=== PATIENT | female | born 1965 | race Caucasian/White ===

== ENCOUNTER → 2023-09-14 18:56 | Outpatient (REF) | payer BC, SELFPAY | LOC: WDC 18:56 | PROVIDERS: ATTENDING PHYSICIAN Obstetrics & Gynecology Gynecology; FAMILY PHYSICIAN Family Medicine | DX: Z12.31 Encounter for screening mammogram for malignant neoplasm of breast (principal); Z80.3 Family history of malignant neoplasm of breast | CPT/HCPCS: 77063; 77067 ==

== ENCOUNTER 2023-12-25 13:21 | Inpatient (IN) | payer BC, SELFPAY ==
[2023-12-25] VITALS (18 sets, daily range): BP systolic 135–215; BP diastolic 74–173; BMI 25.0
--- NOTE | 2023-12-25 11:08 | EDRN ---
the pt was placed on the caustic pump operator, blood pressure taken again and is 215/112 (135), the pt is tearful and worried, the pt stated to this RN that her vision is blurry and stated, 'I am so worried that i have some kind of tumor in my head',
this RN reassured the pt and talked the pt through deep breathing, PIV placed, labs drawn and sent, Dr. Caruso currently at the pts bedside, NIH performed, will continue to monitor the pt closely
--- NOTE | 2023-12-25 11:13 | EDRN ---
EKG being performed
--- NOTE | 2023-12-25 11:15 | ED.GENMED ---
History of Present Illness
General
Chief Complaint: Blood Pressure Problem
Source: patient
Exam Limitations: none
Time Seen by Provider: 12/25/23 11:05
Nursing documentation reviewed up to this point in time: agreed with
History of Present Illness
History of Present Illness:
Patient with history of hypertension on lisinopril and HCTZ, presents to ED secondary to persistently elevated blood pressure over the past 1 month, along with ongoing blurred vision, left worse than right. Patient has been evaluated by an
baby formula mixer who discovered 'blood vessel hemorrhage' behind the left eye. Patient also has had left-sided headache for some time. Denies loss of sensation or weakness. Denies difficulty with speech or swallowing. Denies difficulty with
ambulation. Denies chest pain or palpitations. Denies recent change in diet. Denies recent weight changes.
Past History
Past History
ED Past Medical History: HTN and Other (Gestational diabetes, sleep apnea)
ED Past Surgical History: and Other (Hammertoe surgery, pilonidal cyst surgery, wisdom teeth extraction)
Social History
Tobacco: Smoker
Alcohol: Occasional
Personal:
Living: with family
Employment: Employed
Review of Systems
Review of Systems
Allergies reviewed?: Yes
All Other Systems: ROS reviewed and negative except as documented in HPI and ROS
Constitutional: Reports no symptoms
EENT: Reports no symptoms
Respiratory: Reports no symptoms
Cardiac: Reports no symptoms; Denies chest pain or palpitations
ABD/GI: Reports no symptoms
Musculoskeletal: Reports no symptoms
Skin: Reports no symptoms
Neurological: Reports headache and other (Blurry visionblurred vision)
Phy Exam
Physical Exam
Physical Exam:
Physical Exam
General: no apparent distress, not acutely ill. afebrile. hypertensive
Head: nc/at. eomi.
Neck: supple. normal range of motion
Heart: s1/s2 regular rate and rhythm, no murmur. equal radial pulses.
Lungs: no acute respiratory distress. clear bilaterally
Abdomen: normal bowel sounds. not tender.
Neuro: alert and oriented. no focal neurological deficits
Skin: no rash
Psychiatric: well kept. interactive and cooperative
Extremities: no edema. no calf tenderness.
Course
Orders/Labs/Results
Orders:
Orders
12/25/23 Breakfast
Cholesterol Lowering
At Your Request: Full Participation
Does patient need a safe tray?: No
Cholesterol Lowering: Sodium, 2 Gram
12/25/23 10:58
EKG [Electrocardiogram (*1)] Urgent
Reason for Study: Vertigo / Dizzy
EKG- Treatment ONCE
12/25/23 11:05
Complete Blood Count/With Diff Urgent
Comprehensive Metabolic Panel Urgent
12/25/23 11:13
CT Head W/o Iv Contrast Urgent
Comment:
Reason For Exam: severe hypertension with blurred vision
TSH Urgent
Troponin I Urgent
12/25/23 11:14
Labetalol HCl [Trandate] 10 mg IV NOW STA
12/25/23 13:11
Metoprolol Xl [Toprol Xl] 25 mg PO NOW STA
12/25/23 13:12
Admit/Transfer Patient As Directed
Co-Sign Provider:
Level of Care: Inpatient admission
Assign to:: Telemetry
Physician / Group: andrea
Diagnosis: hypertension emergency
Reason for Telemetry: Other
Other Reason for Telemetry: htn emergency
Date to Stop Telemetry: 12/27/23
Time to Stop Telemetry: 11:00
Reason for Hospitalization: HTn emergency
Expected length of stay greater than two midnights?: Yes
ELOS- Estimated Length of Stay in days: 3
I certify the patient meets the requirements for IP care: Yes
PRN Pain Medication Management As Directed
May give lesser potent ordered pain med per pt: Yes
preference::
Protocol:: Medication orders for pain may be administered in a
manner that supports deferring to patient preference
when the pt is:
- Requesting an ordered lesser potent pain medication.
Least to most potent pain medications are defined
as: acetaminophen < NSAID < tramadol < opioids
(morphine, oxycodone, hydromorphone).
- Requesting a lesser dose of the same medication IF
ORDERED.
- Requesting a less intrusive route of administration
if both routes are prescribed by the provider (PO <
IV).
12/25/23 13:13
Code Status As Directed
Resuscitation Status: Full Code
12/25/23 15:43
Acetaminophen [Tylenol] 650 mg PO Q4HPRN PRN
Bisacodyl [Dulcolax] 10 mg RECTAL [id number] PRN
Docusate W/Senna [Senokot-S] 1 tablet PO BIDPRN PRN
Polyethylene Glycol Powder [Miralax] 17 grams PO DAILYPRN PRN
12/25/23 15:43
Activity As Directed
Activity Level: As Tolerated
Pneumatic Compression Sleeves As Directed
Type: Knee high
Vital Signs As Directed
Frequency: Per unit guidelines
DX Deep Vein Thrombosis Video Routine
12/25/23 23:02
Urinalysis Reflex To Culture Urgent
Date Specimen was Collected: 12/25/23
Time Specimen was Collected: 11:19
12/26/23 06:04
Basic Metabolic Panel IN AM
Cardiovascular Evaluation IN AM
Complete Blood Count/No Diff IN AM
12/26/23 08:00
Duloxetine Delayed Release [Cymbalta Delayed Release] 60 mg PO DAILY
Hydrochlorothiazide [Oretic] 12.5 mg PO DAILY
Lisinopril [Zestril] 20 mg PO DAILY
Metoprolol Xl [Toprol Xl] 25 mg PO DAILY
12/26/23 18:19
Urine Microscopic Reflex Cult Urgent
Urine Culture Urgent
AGUSTIN Source: U
Specimen Description:
Date Specimen was Collected: 12/25/23
Time Specimen was Collected: 11:19
12/27/23 09:24
Basic Metabolic Panel IN AM
Complete Blood Count/No Diff IN AM
12/27/23 11:00
DC Protocol for Telemetry ONCE
Abnormal Lab Results
12/25/23
11:05
MCH 31.3 H pg
(27.0-31.0)
Absolute Monos (auto) 0.8 H 10^3/uL
(0.1-0.6)
Monocytes % 16.4 H %
(1.7-9.3)
12/25/23 11:05
12/25/23 11:05
Vital Signs
Initial and Last Documented VS:
Initial Vital Signs
Temp Pulse Resp BP Pulse Ox
98.2 F 87 16 183/113 98
12/25/23 10:51 12/25/23 10:51 12/25/23 10:51 12/25/23 10:51 12/25/23 10:51
Last Documented Vital Signs
Temp Pulse Resp BP Pulse Ox
98.1 F 82 14 124/76 98
12/27/23 16:05 12/27/23 16:05 12/27/23 16:05 12/27/23 16:05 12/27/23 16:05
MDM/Problems Addressed
MDM/Problems Addressed:
CT head: NAD.
Discussed with on-call neurology, Dr. Ramey. Recommends that patient be admitted for further evaluation and treatment, including tighter blood pressure control.
*EKG
EKG Intrepretation Date: 12/25/23
Heart Rate: 73
Rate: normal
Rhythm: sinus
[place]: normal axis
Interval: normal interval
*Critical Care Note
Total Time (30-74mins, 75-104mins- exclusive of procedures): Not Applicable
ED Attending Note
-
Portions of this chart may have been created with voice recognition software.� Occasional wrong word or��sound alike� substitutions may have occurred due to the inherent limitations of voice recognition software.
Discharge Plan
Departure
Patient Disposition: Admit
Date of Disposition: 12/25/23
Time of Disposition: 12:42
Admit to: Telemetry
Presentation/result/management discussed w/ accepting MD/DO: Hospitalist
Discharge Problem:
Hypertensive emergency, Blurred vision
Interventions
Interventions:
*Risk Screen - Suicide Last Done: 12/25/23 11:09
*General Assessment Last Done: 12/25/23 11:09
*Neglect/Abuse Screening Last Done: 12/25/23 11:09
ED- Fall Risk Assessment Last Done: 12/25/23 11:09
*ED COVID-19 Vaccine History Last Done: 12/25/23 11:09
*Nursing Disposition Last Done: 12/25/23 14:53
ED- Cardiac Assessment Last Done: 12/25/23 11:09
ED- Neurological Assessment Last Done: 12/25/23 11:09
ED- Pulmonary Assessment Last Done: 12/25/23 11:09
Discharge Date and Time
Discharge Date/Time: 12/25/23 15:36
[2023-12-25 11:22] LABS: % Basophils 0.8 % (0-2); % Eosinophils 1.6 % (0-6); % Immature Granulocytes 0.2 % (0-0.5); % Lymphocytes 32.1 % (20.5-51.1); % Monocytes 16.4 % (1.7-9.3); % Neutrophils 48.9 % (42.2-75.2); Absolute Eosinophils 0.1 10^3/uL (0-0.7); Absolute Lymphocytes 1.6 10^3/uL (1.2-3.4); Absolute Monocytes 0.8 10^3/uL (0.1-0.6); Absolute Neutrophils 2.5 10^3/uL (1.4-6.5); Hematocrit 39.6 % (37.0-47.0); Hemoglobin 14.1 g/dL (12.0-16.0); Mean Corp Hgb Conc. 35.6 g/dL (33.0-37.0); Mean Corpuscular Hgb 31.3 pg (27.0-31.0); Mean Corpuscular Volume 87.8 fL (81.0-99.0); Mean Platelet Volume 9.4 fL (7.4-10.4); Nucleated Red Blood Cells % 0 %; Platelet Count 289 10^3/uL (130-400); Red Blood Cell Count 4.51 10^6/uL (4.20-5.40); Red Cell Dist. Width 12.3 % (11.5-14.5); White Blood Cell Count 5.1 10^3/uL (4.8-10.8)
[2023-12-25 11:33] LABS: ALT (SGPT) 16 U/L (0-35); AST (SGOT) 30 U/L (14-36); Albumin 4.8 g/dl (3.5-5.0); Alkaline Phosphatase 66 U/L (38-126); Blood Urea Nitrogen 11 mg/dl (7-17); Carbon Dioxide 27 mmol/L (22-30); Chloride 98 mmol/L (98-107); Estimated Creatinine Clearance 84 ml/min; Glucose 82 mg/dl (70-99); Potassium 4.5 mmol/L (3.5-5.1); Sodium 135 mmol/L (135-145); Total Bilirubin 0.6 mg/dl (0.2-1.3); Total Protein 7.1 g/dl (6.3-8.2); eGFR > 60.00
--- NOTE | 2023-12-25 11:43 | EDRN ---
per Dr. Caruso the pt is not to receive Labetalol until the pt goes to CT scan and after the pts blood pressure is checked after CT scan
[2023-12-25 11:46] LABS: Troponin I < 0.012 ng/ml
[2023-12-25 12:06] LABS: TSH 1.86 uIU/ml (0.47-4.68)
--- NOTE | 2023-12-25 12:09 | EDRN ---
blood pressure rechecked and is currently 186/97 (124), provider notified and per Dr. Caruso hang on to Labetalol and do not give it yet, continue to monitor BP, will continue to monitor the pt closely
[2023-12-25] MEDS: TRANDATE 10 MG IV (12:38)
--- NOTE | 2023-12-25 12:45 | HPS.HSE ---
Addendum entered and electronically signed by Lucia Leo MD 12/25/23 14:39:
see my update note for addendum
Original Note:
Family Physician
-
Family Physician: Alejandra Chung
Chief Complaint
-
headache
blurry vision
History of Present Illness
58 year old with PMH for HTN, NU presented to us with elevated BP for one month. she was asked by PCP to monitor for one month. she had an appointment with e business consultant last Thursday due to blurry vision and noted to have blood vessel
hemorrhage. for past few days her BP was noted in 180's over 100's. she was evaluated by PCP today. her BP was 190 /120. PCP recommended ER visit. patient stated left blurry vision worse than right. denied dizzy or syncopal episode. Headache is also
more left side. Denies loss of sensation or weakness. Denies difficulty with speech or swallowing. Denies difficulty with ambulation. Denies chest pain or palpitations. denied abdominal pain,n,v,d. denied dysuria or hematuria.
Head CT with no acute findings. admitting for further management. patient received IV labetalol in ER. admitting for further management.
Medical History
Past Medical History
Past Medical History: Reports Other
Additional Past Medical History:
sleep apnea
htn
colon polyp
anxiety
depression
Past Surgical History: Reports Other
Additional Past Surgical History:
Anal fissure repair
hammertoe repair
carpal tunnel release
Social History
Tobacco: Smoker
Alcohol: Occasional
Drug: None
Personal:
Living: With Family
Employment: Employed
Family History
Family History: Not pertinent
Allergies / Home Medications
Allergies reflects when Allergies were last updated in [facility].
Home Medications with original date entered in [facility]
Allergy/Medication List:
Allergies
Allergy/AdvReac Type Severity Reaction Status Date / Time
amoxicillin [From Augmentin] Allergy Hives Verified 12/25/23 10:57
cefaclor [From Ceclor] Allergy Hives Verified 12/25/23 10:57
clavulanic acid Allergy Hives Verified 12/25/23 10:57
[From Augmentin]
codeine [Codeine] Allergy Hives Verified 12/25/23 10:57
bees/yellow jackets Allergy Anaphylaxis Uncoded 12/25/23 10:57
Home Medications
duloxetine 60 mg capsule,delayed release (Cymbalta) 60 mg PO DAILY 09/21/09
Lisinopril 10 mg PO DAILY 01/12/16
diphenhydramine HCl 50 mg capsule 50 mg PO Q6H PRN itching #30 caps 06/26/22
Review of Systems
-
Constitutional: Reports No Symptoms
EENT: Reports Other (blurry vision)
Respiratory: Reports No Symptoms
Cardiac: Reports No Symptoms
Abdomen/GI: Reports No Symptoms
: Reports No Symptoms
Musculoskeletal: Reports No Symptoms
Skin: Reports No Symptoms
Neurological: Reports Headache
Endocrine: Reports No Symptoms
Hematologic/Lymphatic: Reports No Symptoms
Psych: Reports No Symptoms
Physical Exam
Vital Signs
Vital Signs
Temp Pulse Resp BP Pulse Ox
98.2 F 75 16 178/143 95
12/25/23 10:51 12/25/23 12:38 12/25/23 12:30 12/25/23 12:38 12/25/23 12:30
Physical Exam
General: Well Developed, Well Nourished and No Apparent Distress
HEENT: NormoCephalic, Moist mucous membranes and Atraumatic
Respiratory: Clear
Cardiac: S1/S2 and Regular Rhythm; No Murmur or Rub
GI: Soft, Non Tender, Non Distended and Normal Bowel Sounds; No Organomegaly
Rectal: Deferred by Provider
Musculoskeletal: No Clubbing, No Cyanosis and No Edema
Skin: No Rash
Neuro: AO x 3 and Nonfocal/grossly intact
Psych: Calm
Laboratory Results
-
12/25/23 11:05
12/25/23 11:05
Laboratory Results
Total Bilirubin 0.6 mg/dl (0.2-1.3) 12/25/23 11:05
AST 30 U/L (14-36) 12/25/23 11:05
ALT 16 U/L (0-35) 12/25/23 11:05
Alkaline Phosphatase 66 U/L (38-126) 12/25/23 11:05
Troponin I < 0.012 ng/ml 12/25/23 11:13
Data Reviewed
-
CT Scan: Report Reviewed by me
Lab Data: Labs Reviewed by me
Impression/Plan
-
#TAPIA/blurred vision likely from hypertension emergency
-SBP>210, trending down
-CT head No acute intracranial hemorrhage.Nonspecific mild to moderate white matter disease, likely related to microvascular ischemia, though greater than expected for patient age.
-EKG NSR
-Received labetalol in ER
-Lisinopril and hctz continued continued
-metoprolol added
-continue to monitor BP
#anxiety
-duloxetine continued
#DVT prophylaxis
-scd
#CODE status
-full code
[2023-12-25] MEDS: TOPROL XL 25 MG PO (13:59)
--- NOTE | 2023-12-25 14:39 | W.PN.UPDATE ---
Update Note
Progress Note Update
I saw and examined the patient.
The FUNERAL ARRANGEMENT DIRECTOR Paulie's note was reviewed and I agree with the note.
Comment: 58 y/o F hx of HTN (on 2 BP meds) NU presents to ER for elevated BP. Recent had blurry vision and blood vessel hemorrhage in the eye diagnosed by log sawyer. Home readings showing 180s/100s. PCP recommended ER visit. Today reports
ongoing blurred vision and headache. No other complaints.
In ER, given Labetalol and started back on PO meds.
Physical Exam
General: Well Developed, Well Nourished and No Apparent Distress
HEENT: Normocephalic, Moist mucous membranes and Atraumatic
Respiratory: Clear
Cardiac: S1/S2 and Regular Rhythm; No Murmur or Rub
GI: Soft, Non Tender, Non Distended and Normal Bowel Sounds; No Organomegaly
Rectal: Deferred by Provider
Musculoskeletal: No Clubbing, No Cyanosis and No Edema
Skin: No Rash
Neuro: AO x 3 and Nonfocal/grossly intact
Psych: Calm
Assessment:
Hypertensive urgency with TAPIA, blurred vision
- CT head negative in ER
- s/p Labetalol in ER
- continue Lisinopril 20mg
- continue HCTZ 12.5mg
- add Metoprolol; monitor response
Anxiety - continue Duloxetine
DVT ppx: SCDs
Code: Full
--- NOTE | 2023-12-25 14:45 | EDRN ---
admission information documented by this RN in [facility], this RN sent paper report up to the receiving nurse
[2023-12-26] VITALS (10 sets, daily range): BP systolic 100–170; BP diastolic 67–102
--- NOTE | 2023-12-26 03:47 | PTCARENOTE ---
Pt rang call williamson and requested CPAP to be taken off for the rest of the night. CPAP removed, pt reported that she 'slept pretty good last night' with the CPAP on. RT Telma made aware that pt will keep CPAP off for the rest of the shift.
[2023-12-26 06:48] LABS: Blood Urea Nitrogen 12 mg/dl (7-17); Calcium 9.9 mg/dl (8.4-10.2); Carbon Dioxide 31 mmol/L (22-30); Chloride 98 mmol/L (98-107); Estimated Creatinine Clearance 74 ml/min; Glucose 107 mg/dl (70-99); HDL Cholesterol 56 mg/dl; LDL Cholesterol, Calculated 118 mg/dl; Potassium 4.8 mmol/L (3.5-5.1); Sodium 137 mmol/L (135-145); Total Cholesterol 193 mg/dl (50-199); Triglyceride 95 mg/dl (10-149); Very Low Density Lipoprotein 19 mg/dl (0-30); eGFR > 60.00
[2023-12-26 07:57] LABS: Hematocrit 38.4 % (37.0-47.0); Hemoglobin 13.4 g/dL (12.0-16.0); Mean Corp Hgb Conc. 34.9 g/dL (33.0-37.0); Mean Corpuscular Hgb 31.9 pg (27.0-31.0); Mean Corpuscular Volume 91.4 fL (81.0-99.0); Mean Platelet Volume 9.6 fL (7.4-10.4); Platelet Count 206 10^3/uL (130-400); Red Cell Dist. Width 12.1 % (11.5-14.5); White Blood Cell Count 5.4 10^3/uL (4.8-10.8)
[2023-12-26] MEDS: TOPROL XL 25 MG PO (08:22)
[2023-12-26] MEDS: TYLENOL 650 MG PO (08:22)
[2023-12-26] MEDS: CYMBALTA DELAYED RELEASE 60 MG PO (08:22)
[2023-12-26] MEDS: ORETIC 12.5 MG PO (08:22)
[2023-12-26] MEDS: ZESTRIL 20 MG PO ×2 (08:23→13:26)
--- NOTE | 2023-12-26 10:08 | W.PN.HOSP.TC ---
Today's Communication/Plan
-
dc if afternoon BP stable
Assessment / Plan
Assessment / Plan
Assessment:
Hypertensive urgency with TAPIA, blurred vision
- CT head negative in ER
- s/p Labetalol in ER
- continue Lisinopril 20mg/HCTZ 12.5mg
- continue newly added Metoprolol XL and monitor response. If BP stable, dc later today
Anxiety - continue Duloxetine
DVT ppx: SCDs
Code: Full
More than 30 minutes spent in discharge including
Final examination of the patient
Summarizing hospital stay
Instructions for continuing care to all relevant caregivers
Preparation of discharge records, prescriptions, and referral forms
Total time spent (in minutes): 41
Anticipated Discharge: Today
Subjective/Interval History
-
Date of Service: December 26, 2023
headache improving
BP improving
Objective Data
-
Labs:
Laboratory Results
12/26/23
06:04
WBC 5.4
Hgb 13.4
Hct 38.4
Plt Count 206 D
Sodium 137
Potassium 4.8
Chloride 98
Carbon Dioxide 31 H
BUN 12
Creatinine 0.8
Glucose 107 H
Calcium 9.9
Vital Signs:
Vital Signs
Temp Pulse Resp BP Pulse Ox
97.6 F 69 18 157/88 99
12/26/23 07:53 12/26/23 07:53 12/26/23 07:53 12/26/23 07:53 12/26/23 07:53
I&O
12/25/23 12/26/23 12/27/23
06:59 06:59 06:59
Intake Total 960 / 960
Balance 960 / 960
Physical Exam
-
General: No Apparent Distress
HEENT: Normocephalic and Atraumatic
Respiratory: Negative Wheezes
Cardiac: Regular Rhythm
GI: Soft
Musculoskeletal: No Edema
Neuro: AO x 3
Hematologic / Lymphatic: No Lymphadenopathy
Psych: Calm
Data Reviewed
-
Total Time Spent with Patient (in minutes): 41
Labs: Labs Reviewed by me
--- NOTE | 2023-12-26 11:17 | CM ---
Patient seen bedside with spouse, Gary, initial assessment completed. Patient resides with spouse in a multiple story home, bedroom on main floor, two steps to enter. Patient denies DME, VN, or SNF history. Patient PCP Alejandra Chung, pharmacy [facility]. Patient confirms prescription coverage, denies food, housing/utility, transportation insecurities at home. CM will continue to follow for all discharge planning needs.
Plan; discharge, home no needs, with spouse.
[2023-12-26] MEDS: XANAX 0.125 MG PO (14:03)
--- NOTE | 2023-12-26 14:18 | W.CON.NEPH ---
Consultation
-
Date/Time Consultation Requested: 12/26/2023 13:20PM
Date/Time Consultation Performed: 12/26/2023 2:18PM
Requesting Provider: Lucia Leo
Performing Provider: Valentine Watters
Reason for Consultation: HTN
Medical History
-
Chief Complaint: HTN
History of Present Illness:
Ms. Mensah is a 58YOF with PMH of HTN, NU who presents to the hospital for elevated BP.
She was being monitored by her PCP for one month of HTN. Her blood pressures were running in the 180s-200s systolics. She had an appointment with web art director last Thursday due to blurry vision and noted to have blood vessel hemorrhage. Does
endorse headache on L side. H Denies loss of sensation or weakness. Denies difficulty with speech or swallowing. Denies difficulty with ambulation. Denies chest pain or palpitations. denied abdominal pain,n,v,d. denied dysuria or hematuria. Does
endorse significant life stressors at home. Has not been wearing CPAP. Drinking salt drinks due to hyponatremia with HCTZ. Does not follow low salt diet. Does not excercise.
Head CT with no acute findings.
Nephrology is consulted for HTN.
Past Medical History
sleep apnea
htn
colon polyp
anxiety
depression
Past Surgical History: Other (Anal fissure repair hammertoe repair carpal tunnel release)
Social History
Tobacco: Smoker
Alcohol: Occasional
Drug: None
Personal:
Living: With Family
Employment: Employed
Family History
brother with HTN in 20s
diagnosed with HTN in 30s
both parents with HTN
father with renal failure at 70, initiated HD, at 80
Family History: Not Pertinent
Allergies / Home Medications
Allergy/AdvReac Type Severity Reaction Status Date / Time
amoxicillin [From Augmentin] Allergy Hives Verified 12/25/23 10:57
cefaclor [From Ceclor] Allergy Hives Verified 12/25/23 10:57
clavulanic acid Allergy Hives Verified 12/25/23 10:57
[From Augmentin]
codeine [Codeine] Allergy Hives Verified 12/25/23 10:57
bees/yellow jackets Allergy Anaphylaxis Uncoded 12/25/23 10:57
�Medication �Instructions �Recorded �Confirmed �Type
duloxetine 60 mg capsule,delayed 60 mg PO DAILY Depression 09/21/09 12/25/23 History
release (Cymbalta)
lisinopril 20 mg tablet 20 mg PO DAILY Blood Pressure 01/12/16 12/25/23 History
hydrochlorothiazide 12.5 mg tablet 12.5 mg PO DAILY Blood Pressure 12/25/23 12/25/23 History
Review of Systems
-
History Source: Patient
All other systems: Negative unless noted
Physical Exam
Vital Signs
Vital Signs
Temp Pulse Resp BP Pulse Ox
98.4 F 66 20 162/100 99
12/26/23 11:18 12/26/23 11:18 12/26/23 11:18 12/26/23 13:00 12/26/23 11:18
Lab Results
WBC 5.4 10^3/uL (4.8-10.8) 12/26/23 06:04
RBC 4.20 10^6/uL (4.20-5.40) 12/26/23 06:04
Hgb 13.4 g/dL (12.0-16.0) 12/26/23 06:04
Hct 38.4 % (37.0-47.0) 12/26/23 06:04
Plt Count 206 10^3/uL (130-400) D 12/26/23 06:04
Sodium 137 mmol/L (135-145) 12/26/23 06:04
Potassium 4.8 mmol/L (3.5-5.1) 12/26/23 06:04
Chloride 98 mmol/L (98-107) 12/26/23 06:04
Carbon Dioxide 31 mmol/L (22-30) H 12/26/23 06:04
BUN 12 mg/dl (7-17) 12/26/23 06:04
Creatinine 0.8 mg/dL (0.6-1.0) 12/26/23 06:04
eGFR > 60.00 12/26/23 06:04
Glucose 107 mg/dl (70-99) H 12/26/23 06:04
Calcium 9.9 mg/dl (8.4-10.2) 12/26/23 06:04
Albumin 4.8 g/dl (3.5-5.0) 12/25/23 11:05
Physical Exam
General: AOx3, No Distress and Nontoxic
HEENT: PERRL, EOMI, Anicteric, Conjunctivae Clear, Ear/Nose Intact, Hearing Normal, Oropharynx Clear/Moist, Dentition Intact, Facial Symmetry, Neck Supple, Trachea Midline, No JVD and No Thyromegaly
Respiratory: Clear
Cardiac: S1/S2, Regular Rate/Rhythm and No Edema
Breast: Deferred by me
Abdomen: Soft, Nontender, Nondistended, Normal Bowel Sounds and No Hepatosplenomegaly
Rectal: Deferred by Provider
Genito-urinary: Clear Urine
Musculoskeletal: No Clubbing, No Cyanosis and No Edema
Skin: No Rash, Warm, Dry, No Clubbing, No Cyanosis, Normal Turgor and No Bruising
Neuro: Nonfocal/Grossly Intact
Hematologic/Lymphatic: No Cervical Lymphadenopathy
Psych: Mood/afflect pleasant, Insight/judgement good and Appropriate
Data Reviewed
-
CT Scan: Report Reviewed by me (IMPRESSION: No acute intracranial hemorrhage. Nonspecific mild to moderate white matter disease, likely related to microvascular ischemia, though greater than expected for patient age.)
Labs: Labs Reviewed by me and Discussed with Patient
Old Records: Reviewed
Assessment/Plan
-
Assessment:
HTN
NU
Plan:
Hypertension
- ddx: mineralocorticoid excess, NU, pheo, thyroid disorders, [place], SUSSY'
- obtain cortisol, TSH, renal duplex, plasma metanephrines, renin/yady
- current regimen: HCTZ and metoprolol and lisinopril 40mg
- I will change her regimen to lisinopril 40mg, nifedipine 60mg daily
- will hold HCTZ due to prior hyponatremia. can change to spironolactone after above testing is done. in the interim, will initiate lasix 20mg PO daily
- I stopped metoprolol, can transition to coreg if needed
- low salt diet
- discussed dietary and lifestyle changes
- continue CPAP nightly
- no smoking or alcohol usage
[2023-12-26] MEDS: LASIX 20 MG PO (16:43)
[2023-12-26 18:27] LABS: Urine Albumin Trace (Neg - Trace); Urine Bilirubin Negative (Negative); Urine Character Clear (Clear); Urine Color Yellow; Urine Glucose Negative (Negative); Urine Ketone Negative (Negative); Urine Leukocyte 2+ (Negative); Urine Nitrite Negative (Negative); Urine Occult Blood Trace (Negative); Urine Specific Gravity 1.015 (<1.030); Urine Urobilinogen Negative (Neg - 1+)
[2023-12-26 19:21] LABS: Urine Bacteria Few (Negative); Urine Red Blood Cell 0-2 /HPF (0-2)
[2023-12-26] MEDS: PROCARDIA XL (EXTENDED RELEASE) 60 MG PO (21:24)
--- NOTE | 2023-12-26 23:30 | RESPNOTE ---
Attempted to place this PT on CPAP as ordered for HS use for NU and PT stated that although the CPAP had helped the night before, she is currently nauseous and wants to wait until she is not feeling nauseous to use the CPAP.
[2023-12-27 03:00] VITALS: BP 117/71
[2023-12-27 07:44] VITALS: BP 117/71
[2023-12-27] MEDS: ZESTRIL 40 MG PO (09:22)
[2023-12-27] MEDS: PROCARDIA XL (EXTENDED RELEASE) 30 MG PO (09:22)
[2023-12-27] MEDS: CYMBALTA DELAYED RELEASE 60 MG PO (09:23)
[2023-12-27] MEDS: LASIX PO (09:24)
[2023-12-27] MEDS: TYLENOL 650 MG PO (09:35)
[2023-12-27] MEDS: PROCARDIA XL (EXTENDED RELEASE) PO (09:41)
[2023-12-27 09:57] LABS: Blood Urea Nitrogen 11 mg/dl (7-17); Carbon Dioxide 31 mmol/L (22-30); Chloride 92 mmol/L (98-107); Estimated Creatinine Clearance 65 ml/min; Glucose 179 mg/dl (70-99); Potassium 4.5 mmol/L (3.5-5.1); Sodium 135 mmol/L (135-145); eGFR > 60.00
--- NOTE | 2023-12-27 10:15 | W.PN.HOSP.TC ---
Today's Communication/Plan
-
follow afternoon BP is stable, dc home
Assessment / Plan
Assessment / Plan
Assessment:
Hypertensive urgency with TAPIA, blurred vision
- CT head negative in ER
- s/p Labetalol in ER
- continue Lisinopril 40mg, Nifedipine 30mg
- trialed metoprolol but BPs remained high
- appreciate Nephrology assistance
- secondary hypertension workup - including renal US (RX given for outpatient) - pending
Anxiety - continue Duloxetine
DVT ppx: SCDs
Code: Full
More than 30 minutes spent in discharge including
Final examination of the patient
Summarizing hospital stay
Instructions for continuing care to all relevant caregivers
Preparation of discharge records, prescriptions, and referral forms
Total time spent (in minutes): 41
Anticipated Discharge: Today
Subjective/Interval History
-
Date of Service: December 27, 2023
BP improved with med adjustments by nephrology, patient no complaints currently
Objective Data
-
Labs:
Laboratory Results
12/27/23
09:24
WBC Pending
Hgb Pending
Hct Pending
Plt Count Pending
Sodium 135
Potassium 4.5
Chloride 92 L
Carbon Dioxide 31 H
BUN 11
Creatinine 0.9
Glucose 179 H
Calcium 10.0
Vital Signs:
Vital Signs
Temp Pulse Resp BP Pulse Ox
98.3 F 71 12 117/71 98
12/27/23 07:44 12/27/23 09:22 12/27/23 07:44 12/27/23 09:22 12/27/23 07:44
I&O
12/26/23 12/27/23 12/28/23
06:59 06:59 06:59
Intake Total 960 / 960 720 / 720
Balance 960 / 960 720 / 720
Physical Exam
-
General: No Apparent Distress
HEENT: Normocephalic and Atraumatic
Respiratory: Negative Wheezes
Cardiac: Regular Rhythm and S1/S2
GI: Soft
Genito-urinary: No Costovertebral Tender
Neuro: AO x 3
Hematologic / Lymphatic: No Lymphadenopathy
Psych: Calm
Data Reviewed
-
Total Time Spent with Patient (in minutes): 41
Labs: Labs Reviewed by me
[2023-12-27 10:25] LABS: Hemoglobin 14.7 g/dL (12.0-16.0); Mean Corp Hgb Conc. 35.9 g/dL (33.0-37.0); Mean Corpuscular Hgb 31.7 pg (27.0-31.0); Mean Corpuscular Volume 88.6 fL (81.0-99.0); Mean Platelet Volume 9.9 fL (7.4-10.4); Platelet Count 300 10^3/uL (130-400); Red Blood Cell Count 4.63 10^6/uL (4.20-5.40); Red Cell Dist. Width 12.4 % (11.5-14.5); White Blood Cell Count 6.5 10^3/uL (4.8-10.8)
[2023-12-27 10:31] LABS: Cortisol, Random 11.3 ug/dl
[2023-12-27 11:10] VITALS: BP 120/75
--- NOTE | 2023-12-27 12:37 | W.PN.NEPH.PH ---
Today's Communication / Plan
-
- likely for d/c today
Assessment/Plan
-
Assessment:
HTN
NU
Plan:
Hypertension
- ddx: mineralocorticoid excess, NU, pheo, thyroid disorders, Gary, SUSSY, essential HTN
- obtain cortisol, TSH, renal duplex, plasma metanephrines, renin/yady
- current regimen: HCTZ and metoprolol and lisinopril 40mg
- initiated on nifedipine 60mg and lasix yesterday. some hypotension with dizziness noted
- decreased nifedipine to 30mg and hold on lasix today
- BP under excellent control now
- will hold HCTZ due to prior hyponatremia. can add spironolactone in the outpatient setting of needed
- I stopped metoprolol, can transition to coreg if needed in the outpatient setting
- low salt diet
- discussed dietary and lifestyle changes
- continue CPAP nightly
- no smoking or alcohol usage
Plan for discharge later today if BP control remains well. She will follow up in our office in 1 month.
-
-
Date of Service: December 27, 2023
CC / HPI / ROS
-
Chief Complaint:
HTN
History of Present Illness:
BP 120/75 after med adjustment today
Review of Systems:
feeling fatigued
Labs
-
Labs:
WBC 6.5 10^3/uL (4.8-10.8) 12/27/23 09:24
RBC 4.63 10^6/uL (4.20-5.40) 12/27/23 09:24
Hgb 14.7 g/dL (12.0-16.0) 12/27/23 09:24
Hct 41.0 % (37.0-47.0) 12/27/23 09:24
Plt Count 300 10^3/uL (130-400) D 12/27/23 09:24
Sodium 135 mmol/L (135-145) 12/27/23 09:24
Potassium 4.5 mmol/L (3.5-5.1) 12/27/23 09:24
Chloride 92 mmol/L (98-107) L 12/27/23 09:24
Carbon Dioxide 31 mmol/L (22-30) H 12/27/23 09:24
BUN 11 mg/dl (7-17) 12/27/23 09:24
Creatinine 0.9 mg/dL (0.6-1.0) 12/27/23 09:24
eGFR > 60.00 12/27/23 09:24
Glucose 179 mg/dl (70-99) H 12/27/23 09:24
Calcium 10.0 mg/dl (8.4-10.2) 12/27/23 09:24
Albumin 4.8 g/dl (3.5-5.0) 12/25/23 11:05
Physical Exam
-
Vital Signs:
Vital Signs
Temp Pulse Resp BP Pulse Ox
98.5 F 75 14 120/75 97
12/27/23 11:10 12/27/23 11:10 12/27/23 11:10 12/27/23 11:10 12/27/23 11:10
Cardiovascular:: Regular rate and rhythm
Respiratory:: Bilateral: CTA
Lung Excursion:: Normal
Abdomen:: Nontender and Soft
Bowel Sounds:: Normal
Extremity Edema:: None: Bilateral:
Avila Catheter: No
[2023-12-27 13:01] VITALS: BP 98/64
--- NOTE | 2023-12-27 13:03 | W.DS.TRANS ---
DC Summary - Gut Sorter
-
Discharge Instructions:
Discharge Diagnosis/Procedures hypertensive urgency
Diet 2 Gram Sodium
Activity As tolerated
Others Tests renal artery US - script given
Instructions:
Stand-Alone Forms:
Changes to Home Medications: Yes
Discharge Medications:
DC Medications w/original date entered in [employer]
duloxetine 60 mg capsule,delayed release (Cymbalta) 60 mg PO DAILY Depression 09/21/09
lisinopril 20 mg tablet 20 mg PO DAILY Blood Pressure #30 tabs 12/27/23
nifedipine 30 mg tablet,extended release 30 mg PO DAILY #30 tabs 12/27/23
Home Medication Changes
HCTZ stopped, Nifedipine added
Pending Results: No
Total time spent discharging patient (in min): 41
--- NOTE | 2023-12-27 16:02 | CM ---
CM reviewed chart, patient discharge home with spouse, no needs.
Plan; home no needs.
[2023-12-27 16:05] VITALS: BP 124/76
[2023-12-30 08:00] LABS: Aldosterone, Serum 18.5 ng/dL; Aldosterone/Renin Activ Ratio 23.1 ratio (<=25.0); Renin Activity Results 0.8 ng/mL/hr
== END 2023-12-27 16:00 | disposition home or self-care (01) | DRG 305 ==
LOC: 4 WEST ACU 13:21
PROVIDERS: Registered Nurse; ADMITTING PHYSICIAN Internal Medicine; CONSULT PHYSICIAN Student in an Organized Health Care Education/Training Program; EMERGENCY PHYSICIAN Emergency Medicine; FAMILY PHYSICIAN Family Medicine
DX: I16.1 Hypertensive emergency (principal); E87.1 Hypo-osmolality and hyponatremia; F41.9 Anxiety disorder, unspecified; I10 Essential (primary) hypertension; G47.33 Obstructive sleep apnea (adult) (pediatric); F17.200 Nicotine dependence, unspecified, uncomplicated
CPT/HCPCS: 70450; 80048; 80053; 80061; 81003; 81015; 82088; 82533; 83835; 84244; 84443; 84484; 85025; 85027; 87086; 93005; 94660; 96374; 99285

== ENCOUNTER → 2023-12-31 07:46 | Outpatient (REF) | payer BC, SELFPAY | LOC: RAD 07:46 | PROVIDERS: ATTENDING PHYSICIAN Family Medicine; OTHER PHYSICIAN Specialist; REFERRING PHYSICIAN Internal Medicine | DX: I16.1 Hypertensive emergency (principal) | CPT/HCPCS: 93975 ==

== ENCOUNTER → 2024-01-18 08:49 | Outpatient (REF) | payer BC, SELFPAY | LOC: HWRAD 08:49 | PROVIDERS: ATTENDING PHYSICIAN Surgery Vascular Surgery; FAMILY PHYSICIAN Family Medicine | DX: I70.1 Atherosclerosis of renal artery (principal) | CPT/HCPCS: 74174; Q9967 ==

== ENCOUNTER → 2024-02-17 15:01 | Outpatient (REF) | payer BC, SELFPAY | LOC: DHSLP 15:01 | PROVIDERS: ATTENDING PHYSICIAN Internal Medicine Critical Care Medicine; FAMILY PHYSICIAN Family Medicine | DX: G47.33 Obstructive sleep apnea (adult) (pediatric) (principal) | CPT/HCPCS: 95800 ==

== ENCOUNTER → 2024-10-31 14:06 | Outpatient (REF) | payer BC, SELFPAY | LOC: WDC 14:06 | PROVIDERS: ATTENDING PHYSICIAN Obstetrics & Gynecology Gynecology; FAMILY PHYSICIAN Family Medicine | DX: Z12.31 Encounter for screening mammogram for malignant neoplasm of breast (principal) | CPT/HCPCS: 77063; 77067 ==

== ENCOUNTER 2025-02-03 09:22 | Emergency (ER) | payer BC, SELFPAY ==
[2025-02-03 09:24] VITALS: BP 128/70
[2025-02-03] MEDS: TORADOL 30 MG IM (09:56)
[2025-02-03] MEDS: DECADRON 10 MG PO (10:03)
[2025-02-03 10:08] VITALS: BP 120/75
--- NOTE | 2025-02-03 17:31 | ED.GENMED ---
History of Present Illness
General
Chief Complaint: Back Pain
Source: patient
Exam Limitations: none
Time Seen by Provider: 02/03/25 09:35
Nursing documentation reviewed up to this point in time: agreed with
History of Present Illness
History of Present Illness:
59 yo female with h/o HTN, 'two lumbar disc herniations seen on MRI,' and has appointment with Nathan Waters in 1.5 weeks, R knee arthritis and had 'gel injection' 2 weeks ago, Finished prednisone taper 1 week ago for her knee.
Recent URI where she had 'really hard coughing spells that threw my back out,' presents with (points to) Right mid to upper buttock pain, non radiating, denies saddle anesthesia, denies incontinence, denies weakness in legs.
Yesterday, had Hydromorphone from an old prescription at home and took 2 mg which did relieve the pain but she does not want to keep taking that
States pain is 7/10 at rest and 10/10 with movements
She denies fever or chills. Denies UTI symptoms
Past History
Past History
ED Past Medical History: HTN and Other (Gestational diabetes, sleep apnea)
ED Past Surgical History: and Other (Hammertoe surgery, pilonidal cyst surgery, wisdom teeth extraction)
Social History
Tobacco: Smoker
Alcohol: Occasional
Personal:
Living: with family
Employment: Employed
Review of Systems
Review of Systems
Allergies reviewed?: Yes
All Other Systems: ROS reviewed and negative except as documented in HPI and ROS
Phy Exam
Physical Exam
Physical Exam:
GENERAL: No acute distress. A&Ox3.
CONSTITUTIONAL: Afebrile.
EYES: clear, conjunctivae normal
RESPIRATORY: Regular respirations, nonlabored, lungs clear.
CARDIOVASCULAR: Regular rate and rhythm, no murmurs, no rubs.
GI: Soft, nontender
MUSCULOSKELETAL: Ambulating slowly and bent over due to pain right upper to mid buttock area. Full range of motion of lower extremities, negative straight leg raise bilaterally. Well perfused.
SKIN: Warm, dry, pink
PSYCH: Normal mood and affect. Well kept, interactive and appropriate
NEUROLOGIC: Awake, alert and oriented. Strength 5/5 throughout. No neurological deficits. Patellar reflexes 2/4. Dorsi and plantarflexion intact.
Course
Orders/Labs/Results
Orders:
Orders
02/03/25 09:47
Dexamethasone [Decadron] 10 mg PO NOW STA
02/03/25 09:49
Ketorolac [Toradol] 30 mg IM NOW STA
Vital Signs
Initial and Last Documented VS:
Initial Vital Signs
Temp Pulse Resp BP Pulse Ox
98.2 F 88 20 128/70 99
02/03/25 09:24 02/03/25 09:24 02/03/25 09:24 02/03/25 09:24 02/03/25 09:24
Last Documented Vital Signs
Temp Pulse Resp BP Pulse Ox
98.2 F 88 20 120/75 99
02/03/25 09:24 02/03/25 09:24 02/03/25 09:24 02/03/25 10:08 02/03/25 09:24
MDM/Problems Addressed
Differential Diagnosis Includes:
Sacroiliitis, sciatica, low back strain
MDM/Problems Addressed:
59 yo female with h/o HTN, 'two lumbar disc herniations seen on MRI,' and has appointment with Nathan Waters in 1.5 weeks, R knee arthritis and had 'gel injection' 2 weeks ago, Finished prednisone taper 1 week ago for her knee.
Recent URI where she had 'really hard coughing spells that threw my back out,' presents with (points to) Right mid to upper buttock pain, non radiating, denies saddle anesthesia, denies incontinence, denies weakness in legs.
Yesterday, had Hydromorphone from an old prescription at home and took 2 mg which did relieve the pain but she does not want to keep taking that
States pain is 7/10 at rest and 10/10 with movements
She denies fever or chills. Denies UTI symptoms
Patient's exam and history is consistent with sacroiliitis. Immediately tender over the SI joint. No spinal bony tenderness. No neurological deficits. Full range of motion of lower extremities.
No recent trauma, no indication for imaging
Patient is ambulating slowly but independently
She is concerned because her daughter is getting in 2 weeks and wants to be better by then
Plan:
Dose of Decadron and IM Toradol given here
Rx for prednisone taper and muscle relaxant Flexeril sent to her pharmacy
Keep appointment with Nathan
Patient and her are satisfied with this plan.
*Pulse Oximetry
SaO2: 99
Oxygen Mode of Delivery: Room air
Patient hypoxic: not evaluated
*Critical Care Note
Total Time (30-74mins, 75-104mins- exclusive of procedures): Not Applicable
ED Attending Note
-
Portions of this chart may have been created with voice recognition software.� Occasional wrong word or��sound alike� substitutions may have occurred due to the inherent limitations of voice recognition software.
Discharge Plan
Departure
Patient Disposition: Home (Routine Discharge)
Date of Disposition: 02/03/25
Time of Disposition: 09:49
Patient with high blood pressure during this ER visit?: No
Condition: Good
Discharge Problem:
Acute low back pain
Instructions: Sacroiliac Joint Pain, Low Back Pain (DC)
Prescriptions:
New
prednisone 10 mg Tablet
See Rx Instructions .ROUTE .COMPLEX Qty: 30 0RF
Rx Instructions:
Take By Mouth:
40 mg daily x3 days, 30 mg daily x3 days,
20 mg daily x3 days, 10 mg daily x3 days.
cyclobenzaprine 10 mg tablet
10 mg PO HS MDD back pain/spasm PRN (Reason: back pain/spasm) Qty: 30 0RF
No Action
duloxetine [Cymbalta] 60 MG capsule,delayed release(DR/EC)
60 mg PO DAILY
nifedipine 30 mg Tablet Extended Release
30 mg PO DAILY Qty: 30 0RF
lisinopril 20 mg Tablet
20 mg PO DAILY Qty: 30 0RF
Referrals:
John Waters MD [Active, Orthopedics] - Keep scheduled appt
Activity Restrictions/Additional Instructions:
As we discussed, you may continue your Tylenol since it helped. You may also take ibuprofen 400 mg twice daily if needed, be sure to have some food in your stomach when you take it. You received 10 mg of Decadron, a steroid here today. I sent a
prescription to your pharmacy for prednisone taper, start it tomorrow.
I also sent a prescription to your pharmacy for the muscle relaxant cyclobenzaprine, this can make you sleepy and slow the reflexes so do not drive or operate any machinery within 8 hours of taking it.
May alternate warm and cold compresses then stick with whichever feels better.
Interventions
Interventions:
*Risk Screen - Suicide Last Done: 02/03/25 09:24
*General Assessment Last Done: 02/03/25 09:24
*Neglect/Abuse Screening Last Done: 02/03/25 09:24
*ED- Fall Risk Assessment Last Done: 02/03/25 10:12
*ED COVID-19 Vaccine History Last Done: 02/03/25 10:12
*ED Influenza Vaccine History Last Done: 02/03/25 10:12
*Nursing Disposition Last Done: 02/03/25 10:12
ED-Musculoskeletal Assessment Last Done: 02/03/25 10:12
Discharge Date and Time
Discharge Date/Time: 02/03/25 10:13
Print Language: PASHTO
== END 2025-02-03 10:13 | disposition home or self-care (01) ==
LOC: EMR 09:22
PROVIDERS: EMERGENCY PHYSICIAN Emergency Medicine; FAMILY PHYSICIAN Family Medicine
DX: M54.50 Low back pain, unspecified (principal); I10 Essential (primary) hypertension; G47.30 Sleep apnea, unspecified; E11.9 Type 2 diabetes mellitus without complications; F17.200 Nicotine dependence, unspecified, uncomplicated
CPT/HCPCS: 99282; 96372

== ENCOUNTER → 2025-04-19 07:49 | Outpatient (REF) | payer BC, SELFPAY | LOC: RAD 07:49 | PROVIDERS: ATTENDING PHYSICIAN Surgery Vascular Surgery; FAMILY PHYSICIAN Family Medicine | DX: I70.1 Atherosclerosis of renal artery (principal) | CPT/HCPCS: 93975 ==